=== PATIENT | male | born 1955 | race Caucasian/White ===

== ENCOUNTER 2021-05-23 12:31 | Observation (INO) | payer BC, SELFPAY ==
--- NOTE | ~2021-05-23 | CT_ITS ---
EXAMINATION: CT brain wo con, CT cervical spine wo con EXAM DATE: 05/23/2021 13:39 INDICATION: fall/syncope . Head injury. TECHNIQUE: Spiral CT of the head was performed without contrast. Axial, coronal and sagittal images were reviewed. Spiral CT of the cervical spine was performed without contrast. Axial images were rev iewed. Coronal and sagittal reformatted images were also reviewed. The dose-length product (DLP) fo r this examination was 681.00 (accession [id number]), 436.98 (accession [id number]) mGy-cm. The exposure was tailored according to patient size, and iterative reconstruction (ASIR) was used as additional dose reduction technique. There is no prior study for comparison. FINDINGS: HEAD CT: There is no acute intraparenchymal hemorrhage. No evidence of intraparenchymal brain mass l esion. No evidence of acute infarction. There is no mass effect or midline shift. There is no obstru ctive hydrocephalus suspected. There are no extra-axial collections. There are no acute calvarial f ractures. The orbits are unremarkable. Soft tissue is unremarkable. The visualized sinuses and mas toid air cells are well aerated. CERVICAL CT: Advanced right C2-3 facet arthropathy, otherwise mild to moderate cervical spondylosis. There is no evidence of acute cervical fracture. The odontoid process is intact. Pre-dens space is normal. Prevertebral soft tissue is normal. There are no soft tissue abnormalities identified. The re is no disc space widening or traumatic vertebral body subluxation suspected. A detailed level b y level evaluation of spondylosis can be added as addendum if requested. IMPRESSION: 1. No acute intracranial findings or cervical fracture. Reviewed, dictated and finalized at location A. ROAD PURCHASING AGENT IMPRESSION: 1. No acute intracranial findings or cervical fracture.
--- NOTE | ~2021-05-23 | MR_ITS ---
EXAMINATION: MR brain/brain stem wo con DATE: 05/24/2021 13:03 INDICATION: Seizure. TECHNIQUE: Magnetic resonance imaging (MRI) of the brain and brainstem was performed without intraven ous contrast. Sequences included sagittal and axial T1-weighted FSE, axial diffusion-weighted FS EPI, axial T2*-weighted GRE, axial T2-weighted FLAIR Propeller, and axial T2-weighted Propeller. Apparent diffusion coefficient (ADC) maps were created. COMPARISON: Head CT 05/23/2021 FINDINGS: There are scattered areas of nonspecific increased T2-weighted signal intensity in the cere bral white matter, which is within normal limits for the patient's age. There is no intracranial hemo rrhage, acute infarction, or abnormal intracranial mass lesion. The ventricles are normal in size. Th ere is mild mucosal thickening in the paranasal sinuses. The mastoid air cells are normal. The orbits are normal. IMPRESSION: 1. Normal aging brain. Reviewed, dictated and finalized at location A. OR STAFF PSYCHOLOGIST IMPRESSION: 1. Normal aging brain.
--- NOTE | ~2021-05-23 | CT_ITS ---
EXAMINATION: CTA chest PE protocol DATE: 05/23/2021 15:53 INDICATION: Syncope. TECHNIQUE: Computed tomography angiography (CTA) of the chest was performed with 100 mL Omnipaque-350 intravenous contrast timed to evaluate the pulmonary arteries. Coronal maximum intensity projection 3D-reconstructions were created by the technologist. Automated exposure control and iterative reconst ruction technique were employed. The dose-length product was 504.61 mGy-cm. COMPARISON: None. FINDINGS: There is mild emphysema. There is mild atelectasis bilaterally. There is mild scarring at t he lung apices. No pleural effusion. The heart size is normal. No pericardial effusion. There is no p ulmonary embolus. There is a small sliding hiatal hernia. There is mild thoracic spondylosis. There i s mild chronic height loss of T3 and T4 vertebral bodies. IMPRESSION: 1. No pulmonary embolus. 2. Mild emphysema. Reviewed, dictated and finalized at location B. TE INSTRUCTOR
[2021-05-23 12:38] VITALS: BP 162/93; PULSE 102; RESP 18; TEMP 36.6; O2SAT 100
--- NOTE | 2021-05-23 12:46 | ECG_ITS ---
Measurements Intervals [place] Rate: 97 P: 65 OR: 163 QRS: -24 QRSD: 101 T: 23 QT: 343 QTc: 437 Interpretive Statements SINUS RHYTHM DELAYED PRECORDIAL R/S TRANSITION BORDERLINE T WAVE ABNORMALITY- INFERIOR LEADS BASELINE ARTIFACT- I, III, AVL, AVF, V1-V2 BORDERLINE ECG Electronically Signed On 05-23-2021 12:48:19 DEVELOPMENTAL MATHEMATICS PROFESSOR by Srinivasa Almeida D.O.
[2021-05-23 12:52] LABS: Glucose Point of Care 152 mg/dl (65-105)
--- NOTE | 2021-05-23 13:02 | ED.SYNCOPE ---
HPI - Syncope General Chief Complaint: Syncope Stated Complaint: Syncopal Episode, PCP sent patient Time Seen by Provider: 05/23/21 12:49 Source: patient Mode of arrival: ambulatory Limitations: no limitations History of Present Illness HPI narrative: Patient is a 66-year-old male complaining of a syncopal episode at home. Patient states that he felt lightheaded prior to the episode. Patient states that he woke up on the bathroom floor got up and walked to the living room to sit down. According to the , who witnessed the event, while patient was sitting down he started to convulse and his eyes rolled up, was unresponsive, lasted for approximately 30 seconds and was confused for approximately 15 minutes after. Upon arrival to the emergency room patient is alert awake and oriented x4 and has no complaints at this time. Patient denies any history of seizure in the past. Patient denies any headache, speech or visual disturbance, focal weakness or numbness, unsteady gait, chest pain, shortness of breath, abdominal pain, nausea, vomiting, diarrhea, fever or chills. Related Data Allergies Allergy/AdvReac Type Severity Reaction Status Date / Time No Known Allergies Allergy Unknown Unverified 06/03/07 13:12 Review of Systems Review of Systems: All systems reviewed & are unremarkable except as noted in HPI and below Constitutional: Constitutional: Denies body ache(s), Denies chills, Denies excessive sweating, Denies fatigue, Denies fever(s), Denies headache(s), Denies lethargy, Denies malaise, Denies weakness and Denies weight loss Eyes: Eyes: Denies blurry vision, Denies change in vision and Denies loss of vision ENT: Denies dizziness, Denies ear discharge, Denies headache(s), Denies lip swelling, Denies epistaxis, Denies nasal congestion, Denies neck pain, Denies throat swelling and Denies tongue swelling Cardiovascular: Cardiovascular: Denies chest pain, Denies chest pain at rest, Denies chest pain with activity, Denies diaphoresis, Denies rapid heart rate, Denies edema, Denies irregular heart rhythm, Denies lightheadedness, Denies palpitations, Denies dyspnea and Denies dyspnea on exertion Respiratory: Respiratory: Denies chest congestion, Denies cough, Denies hemoptysis, Denies dyspnea and Denies dyspnea on exertion Gastrointestinal: Gastrointestinal: Denies abdominal pain, Denies melena, Denies hematochezia, Denies diarrhea, Denies nausea, Denies vomiting and Denies hematemesis Musculoskeletal: Musculoskeletal: Denies abnormal gait, Denies deformity, Denies joint swelling, Denies limited range of motion, Denies neck pain and Denies numbness Neurologic: Denies Abnormal speech present, Denies abnormal gait, Denies confusion, Denies headache(s), Denies focal weakness, Denies loss of vision, Denies numbness, Denies Other visual disturbances, Denies Sensory deficit (Neuro) and Denies weakness Psychiatric: Psychiatric: Denies confusion, Denies depression, Denies auditory hallucinations, Denies homicidal ideation and Denies suicidal ideation Endocrine: Endocrine: Denies cold intolerance, Denies excessive sweating, Denies fatigue, Denies heat intolerance and Denies palpitations Hematologic/Lymphatic: Hematologic/Lymphatic: Denies easy bleeding and Denies easy bruising Allergic/Immunologic: Allergic/Immunologic: Denies lip swelling, Denies throat swelling and Denies tongue swelling PMFSH Family History Family History Father Family history of cardiovascular disease Acute myocardial infarction, Onset Age: 71 Sibling Family history of cardiovascular disease Grandparent Family history of lung cancer Family history of malignant neoplasm of breast in first degree relative Other Family history of alcoholism Family history of arthritis Family history of malignant neoplasm Social History Social History Smoking status: Former
[2021-05-23 13:15] LABS: Basophils Percent Auto 0.6 % (0.2-1.2); Eosinophils Absolute Auto 0.1 K/mm3 (0-0.3); Eosinophils Percent Auto 0.7 % (0-4.4); Hematocrit 48.4 % (42.0-52.0); Hemoglobin 16.1 g/dL (14.0-18.0); Immature Granulocyte Absolute 0.04 K/mm3 (0.00-0.031); Immature Granulocyte Percent A 0.6 % (0-0.5); Lymphocytes Absolute Auto 0.79 K/mm3 (0.9-3.2); Lymphocytes Percent Auto 11.4 % (18.3-44.2); Mean Corpuscular HGB Conc 33.3 g/dl (32-36); Mean Corpuscular Hemoglobin 31.8 pg (26-34); Mean Corpuscular Volume 95.7 fl (80-100); Mean Platelet Volume 10.3 fl (7.4-10.4); Monocytes Absolute Auto 0.6 K/mm3 (0.1-0.6); Monocytes Percent Auto 8.5 % (2.6-8.5); Neutrophils Absolute Auto 5.4 K/mm3 (1.3-6.7); Neutrophils Percent Auto 78.2 % (45.5-73.1); Platelet Count Result 192 k/mm3 (150-375); Red Blood Count 5.06 M/mm3 (4.6-6.20); Red Cell Distribution Width 12.6 % (11.5-14.5); White Blood Count 6.9 K/mm3 (4.5-10.0)
[2021-05-23 13:25] LABS: Alanine Aminotransferase 31 U/L (4-50); Albumin Level 4.7 g/dL (3.5-5.1); Alkaline Phosphatase 36 U/L (38-126); Anion Gap 11 mmol/L (8-16); Aspartate Amino Transferase 39 U/L (17-59); Bilirubin,Total 1.1 mg/dL (0.2-1.3); Blood Urea Nitrogen 15 mg/dL (9-20); Calcium 9.4 mg/dL (8.4-10.2); Carbon Dioxide 25 mmol/L (22-30); Chloride 102 mmol/L (98-107); Estimated CRCL calculation 64 ml/min; Estimated Glomerular Filt Rate > 60; Glucose 116 mg/dL (65-110); Potassium 3.7 mmol/L (3.4-5.0); Sodium 138 mmol/L (137-145)
[2021-05-23 13:28] LABS: D Dimer 1.26 ug/mL (<0.48)
[2021-05-23 13:45] VITALS: BP 145/83; PULSE 79
[2021-05-23 13:47] VITALS: BP 128/80; PULSE 84
[2021-05-23 13:48] VITALS: BP 141/125; PULSE 103
[2021-05-23] MEDS: LACTATED RINGERS 1,000 ML 999 ML IV CONT ×2 (13:53→15:07)
[2021-05-23 17:45] VITALS: BP 131/81; PULSE 85; RESP 19; O2SAT 99
--- NOTE | 2021-05-23 18:46 | PM.IMHP ---
H&P: HPI History of Present Illness Date/Time: 05/23/21 18:46 This is a 66-year-old male patient who stated that he had a syncopal episode in his bathroom. He stated that he felt lightheaded just prior to that. He also stated that when he got up off the floor went to the living room to sit down when he he stated that the told him that he became stiff and his eyes rolled back in his head and he was short of breath and gasping for air at that time. He is never had any history of seizure activity and does not recall what happened during the event. The patient was not incontinent of bowel or bladder at that time. The patient was confused for approximately 15 minutes afterwards. He the patient goes on to tell me that both he and his had called their primary care doctor earlier today and they were supposed to get a COVID test. The patient stated that he had a low-grade fever at home around 99 something. The patient stated that he has been vaccinated and has not had any sick contacts. The patient was sitting up in the bed when I saw him and was alert orientated x4. He had no complaints. No complaints of any dizziness nausea vomiting or diarrhea. The patient was tested for influenza a and B and also SARs COVID and he was positive for COVID. Patient's D-dimer was found to be 1.26. His glucose is [address] 152[address] Chest [address] was read as no pulmonary embolus and mild emphysema. Head CT was read as no acute intracranial findings or cervical fracture. Cervical spine CT no acute intracranial findings or cervical fracture. The patient initially was started on IV fluids. I explained to the patient that we do not have a neurologist here this weekend and that we would not be able to get him in to see any neurology until after the weekend. However we will keep him overnight and do some workup and monitor him. The patient is on room air and I explained to the patient that we would not be able to keep him just because of the COVID as long as he is on room air. He could go home and monitor his pulse ox at home. The patient is being admitted to observation status on the date of service of 05/23/2021. Chief Complaint: Syncopal episode Review of Systems Review of Systems: All systems reviewed & are unremarkable except as noted in HPI and below Constitutional: Constitutional: Reports as per HPI and Reports no additional constitutional complaints Eyes: Eyes: Reports as per HPI and Reports no additional eye complaints ENT: Reports system reviewed and no additional complaints, except as documented and Reports Normal hearing present Cardiovascular: Cardiovascular: Reports no additional cardiovascular complaints Respiratory: Respiratory: Reports no additional respiratory complaints and Reports no additional respiratory complaints Gastrointestinal: Gastrointestinal: Reports as per HPI and Reports no additional gastrointestinal complaints Musculoskeletal: Musculoskeletal: Reports no additional musculoskeletal complaints Integumentary/Breasts: Skin/Breast: Reports system reviewed and no additional complaints, except as docu and Reports as per HPI Neurologic: Reports system reviewed and no additional complaints, except as documented, Reports as per HPI and Reports Normal hearing present Psychiatric: Psychiatric: Reports no additional psychiatric complaints and Reports as per HPI Endocrine: Endocrine: Reports no additional endocrine complaints Hematologic/Lymphatic: Hematologic/Lymphatic: Reports no additional hematologic/lymphatic complaints Allergic/Immunologic: Allergic/Immunologic: Reports no additional allergic/immunologic complaints PMFSH Past Medical History Medical History BPH (benign prostatic hyperplasia) Surgical History Surgical History History of tonsillectomy S/P ORIF (open reduction internal fixation) fracture left femur Fa
[2021-05-23 20:25] LABS: SARS-CoV-2 RNA PCR Positive
[2021-05-23 21:02] VITALS: BP 138/91; PULSE 95; RESP 18; TEMP 36.5; O2SAT 96
[2021-05-23 21:03] VITALS: BMI 29.9
[2021-05-23] MEDS: LACTATED RINGERS 1,000 ML 125 ML IV CONT (21:27)
[2021-05-24] VITALS (15 sets, daily range): BP systolic 129–135; BP diastolic 63–78; PULSE 69–97; RESP 16–18; TEMP 36.4–36.9; O2SAT 96–99
--- NOTE | 2021-05-24 | ECHO_ITS ---
Patient Info Name: Eric Winslow Age: 66 years : 1955 Gender: Male Ht: 68 in Wt: 182 lbs BSA: 2.01 m2 HR: 96 bpm BP: 131 / 63 mmHg Heart Rhythm: Sinus Rhythm Technical Quality: Good Exam Date: 05/24/2021 1:36 PM Exam Location: [facility] Room: 343 Patient Status: Outpatient Admit Date: 05/23/2021 Staff Ordering Physician: Yun Tobin NP Nurse Anesthetist: Joanne Magallanes RDCS Attending Provider: Lizy Deshpande M.A., MD Referring Physician: Mahad CASTREJON; Exam Type: CA echo doppler color flow Study Info Indications - COVID SYNCOPE VS SEIZURE Complete two-dimensional, color flow and Doppler transthoracic echocardiogram is performed. Summary 1. Complete two-dimensional, color flow and Doppler transthoracic echocardiogram is performed. 2. Normal left ventricular size and thickness with good contractility of all segments. No segmental wall motion abnormalities. Ejection fraction 65-70%. Normal diastolic function. 3. Left atrial chamber dimension is mildly enlarged. 4. Some thickening of the mitral valve which is mildly redundant but not reaching criteria for mitral valve prolapse. 5. Redundant atrial septum, possible atrial septal aneurysm. Consider bubble study if clinically indicated to evaluate for PFO. 6. No significant valve disease. 7. Normal sinus rhythm. Left Ventricle Left ventricular chamber dimension is normal. Left ventricular systolic function is normal, estimated at 65-70%. There is no increased left ventricular wall thickness. Left ventricular septal wall motion is normal. The left ventricular diastolic function is normal. Right Ventricle Right ventricular chamber dimension is normal. Right ventricular systolic function is normal. Left Atria Left atrial chamber dimension is mildly enlarged. Right Atria Right atrial chamber dimension is normal. Aortic Valve The aortic valve is trileaflet. There is no aortic valve sclerosis. There is no aortic valve stenosis. There is trace aortic valve regurgitation. Pulmonic Valve The pulmonic valve is normal. There is no pulmonic valve stenosis. There is trace pulmonic regurgitation. Mitral Valve The mitral valve has thickened leaflets. There is no mitral valve stenosis. There is no mitral valve regurgitation. Tricuspid Valve The tricuspid valve leaflets are normal. There is no significant tricuspid valve stenosis. There is trace tricuspid valve regurgitation. Mild pulmonary hypertension, estimated pulmonary arterial systolic pressure is 37 mmHg. Pericardium/Pleural The pericardium appears normal. There is no pericardial effusion. Inferior Vena Cava Normal inferior vena cava with >50% collapse upon inspiration consistent with Empty right atrial pressure, 10 mmHg. Aorta The aortic root size at the sinus of Valsalva is normal. The prox ascending aorta size is normal. Left Ventricular Outflow Tract Name Value Normal LVOT 2D LVOT Diameter 2.1 cm LVOT Doppler LVOT Peak Gradient 4 mmHg LVOT Mean Gradient 2 mmHg
[2021-05-24 06:00] LABS: Lactic Acid Reflex 0.7 mmol/L (0.7-2.1)
[2021-05-24 06:01] LABS: Basophils Absolute Auto 0.1 K/mm3 (0.0-0.1); Eosinophils Absolute Auto 0.1 K/mm3 (0-0.3); Hematocrit 42.1 % (42.0-52.0); Hemoglobin 14.4 g/dL (14.0-18.0); Immature Granulocyte Absolute 0.02 K/mm3 (0.00-0.031); Immature Granulocyte Percent A 0.3 % (0-0.5); Lymphocytes Absolute Auto 0.69 K/mm3 (0.9-3.2); Lymphocytes Percent Auto 11.6 % (18.3-44.2); Mean Corpuscular HGB Conc 34.2 g/dl (32-36); Mean Corpuscular Volume 93.6 fl (80-100); Mean Platelet Volume 10.2 fl (7.4-10.4); Monocytes Absolute Auto 0.8 K/mm3 (0.1-0.6); Monocytes Percent Auto 12.8 % (2.6-8.5); Neutrophils Absolute Auto 4.3 K/mm3 (1.3-6.7); Neutrophils Percent Auto 72.3 % (45.5-73.1); Platelet Count Result 173 k/mm3 (150-375); Red Cell Distribution Width 12.4 % (11.5-14.5); White Blood Count 5.9 K/mm3 (4.5-10.0)
[2021-05-24 06:04] LABS: Alanine Aminotransferase 26 U/L (4-50); Alkaline Phosphatase 31 U/L (38-126); Anion Gap 9 mmol/L (8-16); Aspartate Amino Transferase 33 U/L (17-59); Bilirubin,Total 0.8 mg/dL (0.2-1.3); Blood Urea Nitrogen 11 mg/dL (9-20); CRP 3.3 mg/dL (<1.0); Calcium 8.8 mg/dL (8.4-10.2); Carbon Dioxide 23 mmol/L (22-30); Chloride 104 mmol/L (98-107); Estimated CRCL calculation 70 ml/min; Estimated Glomerular Filt Rate > 60; Glucose 102 mg/dL (65-110); Lactate Dehydrogenase 390 U/L (313-618); Lipase 71 U/L (23-300); Magnesium 1.9 mg/dL (1.6-2.3); Potassium 4.1 mmol/L (3.4-5.0); Sodium 136 mmol/L (137-145)
[2021-05-24 06:51] LABS: Thyroid Stimulating Hormone Reflex 0.983 uIU/mL (0.465-4.68)
[2021-05-24] MEDS: ENOXAPARIN 40 MG/0.4 ML SYRINGE SUB-Q (08:25)
[2021-05-24 08:46] LABS: Influenza A QL RT-PCR Negative (Negative); Influenza B QL RT-PCR Negative (Negative)
--- NOTE | 2021-05-24 10:30 | PM.IMPN ---
Progress Note: A&P Assessment and Plan (1) COVID: Code(s): U07.1 - COVID-19 Status: Acute Assessment and Plan: currently on room air at this time continue to monitor albuterol inhaler p.r.n. if needed. Tylenol p.r.n. for fever or discomfort Trend pulse ox Droplet and contact isolation (2) Syncope and collapse: Code(s): R55 - Syncope and collapse Status: Acute Assessment and Plan: Could be related to the COVID orthostatic blood pressures will get them repeated echo has been taken and awaiting read probably a vaso vagel response (3) New onset seizure: Code(s): R56.9 - Unspecified convulsions Status: Acute Assessment and Plan: EEG ordered and pending Neurology unavailable this weekend Keppra ordered Discussed case with Dr. Santiago who advised starting keppra and getting EEG RENETTA (4) BPH (benign prostatic hyperplasia): Code(s): N40.0 - Benign prostatic hyperplasia without lower urinary tract symptoms Status: Chronic Assessment and Plan: Continue with patient's home medication tamsulosin Trend urine output bladder scan PRN Time Spent With Patient Time with patient: Greater than 35 minutes Subjective Date/time seen: 05/24/21 1030 Interval history: Date/Time: 05/23/21 18:46 This is a 66-year-old male patient who stated that he had a syncopal episode in his bathroom. He stated that he felt lightheaded just prior to that. He also stated that when he got up off the floor went to the living room to sit down when he he stated that the told him that he became stiff and his eyes rolled back in his head and he was short of breath and gasping for air at that time. He is never had any history of seizure activity and does not recall what happened during the event. The patient was not incontinent of bowel or bladder at that time. The patient was confused for approximately 15 minutes afterwards. He the patient goes on to tell me that both he and his had called their primary care doctor earlier today and they were supposed to get a COVID test. The patient stated that he had a low-grade fever at home around 99 something. The patient stated that he has been vaccinated and has not had any sick contacts. The patient was sitting up in the bed when I saw him and was alert orientated x4. He had no complaints. No complaints of any dizziness nausea vomiting or diarrhea. The patient was tested for influenza a and B and also SARs COVID and he was positive for COVID. Patient's D-dimer was found to be 1.26. His glucose is [address] Chest [address] was read as no pulmonary embolus and mild emphysema. Head CT was read as no acute intracranial findings or cervical fracture. Cervical spine CT no acute intracranial findings or cervical fracture. The patient initially was started on IV fluids. I explained to the patient that we do not have a neurologist here this weekend and that we would not be able to get him in to see any neurology until after the weekend. However we will keep him overnight and do some workup and monitor him. The patient is on room air and I explained to the patient that we would not be able to keep him just because of the COVID as long as he is on room air. He could go home and monitor his pulse ox at home. The patient is being admitted to observation status on the date of service of 05/23/2021. Date/Time 05/24/21 1030 Patient was sitting in bed eating his lunch. Patient denies any symptoms at this time including chest pain, shortness of breath, nausea, vomiting, diarrhea constipation. Patient did state that he was congested mostly in his head. He does have a cough and is producing sputum, however is unaware of what color or the consistency of the sputum. EEG has been a struggle to get this morning. supervisor photostat has been working with me to get the EEG completed. Review of Systems Review
[2021-05-24] MEDS: levETIRAcetam 500 MG TABLET PO ×2 (12:56→21:21)
[2021-05-24 13:32] LABS: Amphetamine Screen Urine Negative (Negative); Barbiturate Screen Urine Negative (Negative); Benzodiazepines Screen Urine Negative (Negative); Cannabinoid Screen Urine Negative (Negative); Cocaine Screen Urine Negative (Negative); Methadone Screen Urine Negative (Negative); Opiate Screen Urine Negative (Negative); Phencyclidine Screen Urine Negative (Negative)
[2021-05-25] VITALS: PULSE 79
[2021-05-25 04:00] VITALS: PULSE 83
[2021-05-25 06:45] LABS: Basophils Absolute Auto 0.1 K/mm3 (0.0-0.1); Basophils Percent Auto 0.8 % (0.2-1.2); Eosinophils Absolute Auto 0.1 K/mm3 (0-0.3); Eosinophils Percent Auto 1.9 % (0-4.4); Hemoglobin 15.4 g/dL (14.0-18.0); Immature Granulocyte Absolute 0.01 K/mm3 (0.00-0.031); Immature Granulocyte Percent A 0.2 % (0-0.5); Lymphocytes Absolute Auto 0.78 K/mm3 (0.9-3.2); Lymphocytes Percent Auto 12.1 % (18.3-44.2); Mean Corpuscular HGB Conc 33.5 g/dl (32-36); Mean Corpuscular Hemoglobin 31.8 pg (26-34); Mean Platelet Volume 10.4 fl (7.4-10.4); Monocytes Percent Auto 15.7 % (2.6-8.5); Neutrophils Absolute Auto 4.5 K/mm3 (1.3-6.7); Neutrophils Percent Auto 69.3 % (45.5-73.1); Platelet Count Result 164 k/mm3 (150-375); Red Blood Count 4.84 M/mm3 (4.6-6.20); Red Cell Distribution Width 12.6 % (11.5-14.5); White Blood Count 6.4 K/mm3 (4.5-10.0)
[2021-05-25 07:12] LABS: Alanine Aminotransferase 26 U/L (4-50); Albumin Level 4.2 g/dL (3.5-5.1); Alkaline Phosphatase 32 U/L (38-126); Anion Gap 10 mmol/L (8-16); Aspartate Amino Transferase 34 U/L (17-59); Bilirubin,Total 0.9 mg/dL (0.2-1.3); Blood Urea Nitrogen 15 mg/dL (9-20); CRP 3.5 mg/dL (<1.0); Calcium 9.2 mg/dL (8.4-10.2); Carbon Dioxide 25 mmol/L (22-30); Chloride 100 mmol/L (98-107); Estimated CRCL calculation 64 ml/min; Estimated Glomerular Filt Rate > 60; Glucose 97 mg/dL (65-110); Lactate Dehydrogenase 418 U/L (313-618); Magnesium 1.9 mg/dL (1.6-2.3); Potassium 4.4 mmol/L (3.4-5.0); Sodium 135 mmol/L (137-145)
[2021-05-25 08:00] VITALS: PULSE 91
[2021-05-25] MEDS: ENOXAPARIN 40 MG/0.4 ML SYRINGE SUB-Q (08:17)
[2021-05-25] MEDS: levETIRAcetam 500 MG TABLET PO (08:17)
--- NOTE | 2021-05-25 10:00 | PM.DS ---
DS: Admitting Diagnosis Discharge Date 05/25/21 10:00am Admitting Diagnosis New onset seizure/COVID-19 DS: Discharge Diagnosis Discharge Diagnosis (1) COVID: Code(s): U07.1 - COVID-19 Status: Acute Assessment and Plan: currently on room air at this time continue to monitor albuterol inhaler p.r.n. if needed. Tylenol p.r.n. for fever or discomfort Trend pulse ox Droplet and contact isolation (2) Syncope and collapse: Code(s): R55 - Syncope and collapse Status: Acute Assessment and Plan: Could be related to the COVID orthostatic blood pressures will get them repeated echo has been taken and awaiting read probably a vaso vagel response (3) New onset seizure: Code(s): R56.9 - Unspecified convulsions Status: Acute Assessment and Plan: EEG can be posted poned Neurology unavailable this weekend Keppra ordered Discussed case with Dr. Santiago who advised starting keppra and getting EEG RENETTA (4) BPH (benign prostatic hyperplasia): Code(s): N40.0 - Benign prostatic hyperplasia without lower urinary tract symptoms Status: Chronic Assessment and Plan: Continue with patient's home medication tamsulosin Trend urine output bladder scan PRN DS: Summary Hospital Course Hospital Course: Patient is 66 year old male here past medical history of BPH who presented to the ED with complaints of syncope, unresponsiveness, confusion. Head CT was performed and showed no acute intracranial findings. CTA showed no PE and mild emphysema. Brain MRI was performed however is still not read. Patient will also need an EEG, however, there is no tech on this weekend or neurology. Patient denies any further episodes. Patient states that he feels good and has been able to walk with no issues. Labs have been stable and have remained unremarkable throughout the visit. COVID test was positive patient has been vaccinated x3. I did talk to the patient about following up with Neurology in which he will call to make an appointment. Patient was started on Keppra 500 mg twice a day. Will continue the Keppra and have him follow-up with neurology for further instructions. Patient will also need an EEG which I will prescribe for outpatient. Patient denies chest pain, shortness of breath, nausea, vomiting, diarrhea, constipation, weakness, fevers, chills, fatigue. Patient also denies urinary symptoms this time. Did speak to Dr. Santiago about the patent who agrees with plan, and stated that it is too late for the EEG to show any acute findings from the previous event. Dr. Santiago stated that to have patient go for an outpatient EEG and also to follow up with Neurology. Echo was also performed and showed normal systolic and diastolic function. Status at Discharge Functional status at discharge: independent ambulation Overall status at discharge: patient is progressing back to baseline Time Spent with Patient Time attestation: Total time spent providing and/or coordinating discharge services: 48 minutes Time spent: Greater than 30 minutes Specific discharge activities: Diagnostic testing, chart review, developing a treatment plan, education, care coordination documentation, physical exam, result review Exam Const: General: cooperative, healthy appearing, comfortable, no acute distress, well developed, alert, awake and Physically active Nutritional Appearance: average body habitus and well nourished Orientation/consciousness: oriented to person, oriented to place, oriented to time and patient oriented x3 Limitations: no limitations HENMT: Head: normal to inspection, No palpable skull fracture present and normocephalic Ears: hearing grossly normal bilaterally General nose exam: Normal external nose present Eyes: General: appearance normal, both eyes and all related structures EOM: EOMs intact bilaterally Neck: Neck: normal visual inspe
[2021-05-25 10:40] VITALS: BP 129/68; PULSE 90; RESP 14; TEMP 36.6; O2SAT 97
[2021-05-25 10:42] VITALS: BP 108/67; PULSE 103; O2SAT 98
[2021-05-25 10:44] VITALS: BP 122/75; PULSE 104; O2SAT 96
== END 2021-05-25 12:45 | disposition home or self-care (01) ==
LOC: ANHED 17:24 → ANH3MED 05-24 12:57
PROVIDERS: Emergency Medicine; Nurse Practitioner; Admitting Provider Internal Medicine; Emergency Provider Emergency Medicine; PCP Anesthesiology; Visit Provider Nurse Practitioner
DX: U07.1 COVID-19 (principal); R55 Syncope and collapse; R56.9 Unspecified convulsions; N40.0 Benign prostatic hyperplasia without lower urinary tract symptoms; Z87.891 Personal history of nicotine dependence
CPT/HCPCS: 36415; 70450; 70551; 71275; 72125; 80053; 80307; 82728; 82948; 83605; 83615; 83690; 83735; 84443; 85025; 85380; 86140; 87502; 93005; 93306; 96360; 96361; 96372; 97161; 97165; 99285; A9270; C9803; G0378; J1650; J7120; Q9967; U0003; U0005

== ENCOUNTER 2021-06-02 08:26 | Outpatient (CLI) | payer BC, SELFPAY ==
--- NOTE | 2021-06-03 10:50 | WPDNEUROLOGY ---
Neurology EEG Report General Information Date of Study: 06/02/21 TEST eeg DIAGNOSIS new onset seizures CONDITION OF RECORDING awake drowsy and sleep EEG NUMBER [id number] CLINICAL HISTORY patient reported he had an episode about 10 days ago where he lost consciousness, was shaking and lost control of bladder as well. No previous history of anything like that and has been fine since then. EEG DESCRIPTION Whole record consists of low-voltage 15 to 18 hertz per 2nd beta activity admixed with multiple EKG artifacts. Bilateral symmetrical sleep activity seen during sleep hyperventilation not done. Photic stimulation produced normal drive. Non paroxysmal. Nonfocal. Nonlateralizing. IMPRESSION No significant abnormalities noted in this low-voltage record prize of mainly wakefulness and drowsiness again clinical correlation recommended
== END 2021-06-02 08:27 | disposition home or self-care (01) ==
PROVIDERS: PCP Student in an Organized Health Care Education/Training Program; Visit Provider Nurse Practitioner
DX: G40.89 Other seizures (principal)
CPT/HCPCS: 95816